=== PATIENT | male | born 1935 | race American Indian/Alaskan Native ===

== ENCOUNTER 2017-02-11 10:46 | Outpatient (CLI) | payer MEDICARE ==
--- NOTE | 2017-02-11 14:17 | Ultrasound Report ---
ULTRASOUND RENAL BILATERAL HISTORY: Chronic kidney disease, stage III. TECHNIQUE: transabdominal ultrasound with color Doppler interrogation. FINDINGS: The right kidney measures 9.2 x 4.1 x 4.6cm. Right renal cortex: 1.0cm. The left kidney measures 9.4 x 5.1 x 4.3cm. Left renal cortex: 1.3cm. Both kidneys are normal size, contour and position. There is increased renal parenchymal echotexture bilaterally consistent with nonspecific renal parenchymal disease. No evidence for mass, cystic disease or hydronephrosis. There are scattered echogenic foci in both kidneys consistent with tiny calyceal stones. This was also seen on CT abdomen pelvis dated 07/08/14. Images through the bladder are unremarkable. IMPRESSION: Echogenic kidneys consistent with nonspecific renal parenchymal disease. Bilateral calyceal stones are suspected but no evidence for hydronephrosis.
== END 2017-02-11 10:47 | disposition home or self-care (01) ==
LOC: US 10:46
PROVIDERS: ATTEND Internal Medicine Nephrology
DX: I12.9 Hypertensive chronic kidney disease with stage 1 through stage 4 chronic kidney disease, or unspecified chronic kidney disease (principal); N18.3 Chronic kidney disease, stage 3 (moderate)
CPT/HCPCS: 76770

== ENCOUNTER 2017-10-15 03:20 | Observation (INO) | payer MEDICARE ==
[2017-10-15] MEDS ORDERED: ASPIRIN PO ONE (04:18)
[2017-10-15] MEDS ORDERED: ZOFRAN IV ONE (04:28)
--- NOTE | 2017-10-15 04:51 | XRay Report ---
FINAL REPORT EXAM: XR CHEST 1V AP HISTORY: Chest pain. TECHNIQUE: A single frontal portable radiograph of the chest was obtained. No prior studies are available for comparison. FINDINGS: The heart is mildly enlarged. There is a left subclavian pacemaker. There is mild diffuse prominence of the interstitial markings, with mild bilateral patchy perihilar opacities. Taken together, this is most suggestive mild pulmonary edema, though pneumonia is not excluded. There is no pleural effusion or pneumothorax. No significant osseous abnormalities are identified. There is gaseous distention of the stomach. IMPRESSION: Cardiomegaly. Mild diffuse prominence of the interstitial markings, with mild bilateral patchy perihilar opacities. These findings may indicate mild pulmonary edema, though pneumonia is not excluded. Clinical correlation is recommended.
[2017-10-15 05:04] LABS: Basophils % (Auto) 0.5 % (0.0-1.8); Eosinophils # (Auto) 0.2 K/mm3 (0.0-0.4); Eosinophils % (Auto) 3.3 % (0.0-4.3); Hematocrit 36.2 % (35.5-45.6); Hemoglobin 12.1 gm/dl (11.8-15.2); Lymphocytes # (Auto) 1.2 K/mm3 (1.2-5.4); Lymphocytes % (Auto) 17.1 % (13.4-35.0); Mean Corpuscular HGB Conc 33 % (32-34); Mean Corpuscular Hemoglobin 29 pg (28-32); Mean Corpuscular Volume 87 fl (84-94); Monocytes # (Auto) 0.6 K/mm3 (0.0-0.8); Monocytes % (Auto) 8.1 % (0.0-7.3); Platelet Count 143 K/mm3 (140-440); Red Blood Count 4.17 M/mm3 (3.65-5.03); Red Cell Distribution Width 14.8 % (13.2-15.2)
[2017-10-15 05:16] LABS: Creatine Kinase MB 3.8 ng/mL (0.0-4.0)
[2017-10-15 05:17] LABS: BUN/Creatinine Ratio 10; Blood Urea Nitrogen 13 mg/dL (9-20); Calcium 9.2 mg/dL (8.4-10.2); Hemolysis Index 14
--- NOTE | 2017-10-15 06:26 | Emergency Department Report ---
<ADDIE KING - Last Filed: 10/15/17 09:30> ED Chest Pain HPI - General Chief Complaint: Chest Pain Stated Complaint: CHEST PAIN Time Seen by Provider: 10/15/17 06:25 - Related Data Home Medications Medication Instructions Recorded Confirmed Last Taken Amlodipine Besylate [Norvasc] 10 mg PO DAILY 06/15/13 06/15/13 06/15/13 Aspirin [Baby Aspirin] 81 mg PO ONCE 06/15/13 06/15/13 06/15/13 Lisinopril [Zestril] 40 mg PO QDAY 06/15/13 06/15/13 06/15/13 Metformin HCl [Fortamet ER] 1,000 mg PO BID 06/15/13 06/15/13 06/15/13 Mv-Mn/Iron/Folic Acid/Herb 190 1 tab PO QDAY 06/15/13 06/15/13 06/15/13 [Vitamin D3 Complete Caplet] [place]-3/Dha/Epa/Fish Oil [Fish Oil 1,000 mg PO DAILY 06/15/13 06/15/13 06/15/13 Dr 500 mg Softgel] Oxybutynin Chloride [Ditropan Xl] 20 mg PO DAILY 06/15/13 06/15/13 06/15/13 Simvastatin [Zocor] 20 mg PO QDAY 06/15/13 06/15/13 06/14/13 glipiZIDE [Glipizide Xl] 20 mg PO BID 06/15/13 06/15/13 06/15/13 Allergies Allergy/AdvReac Type Severity Reaction Status Date / Time tetracycline [Tetracycline] Allergy Rash Verified 06/15/13 19:54 con Allergy Rash Uncoded 06/15/13 19:54 ED Review of Systems ROS: Stated complaint: CHEST PAIN Other details as noted in HPI ED Past Medical Hx - Medications Home Medications: Home Medications Medication Instructions Recorded Confirmed Last Taken Type Amlodipine Besylate [Norvasc] 10 mg PO DAILY 06/15/13 06/15/13 06/15/13 History Aspirin [Baby Aspirin] 81 mg PO ONCE 06/15/13 06/15/13 06/15/13 History Lisinopril [Zestril] 40 mg PO QDAY 06/15/13 06/15/13 06/15/13 History Metformin HCl [Fortamet ER] 1,000 mg PO BID 06/15/13 06/15/13 06/15/13 History Mv-Mn/Iron/Folic Acid/Herb 190 1 tab PO QDAY 06/15/13 06/15/13 06/15/13 History [Vitamin D3 Complete Caplet] [place]-3/Dha/Epa/Fish Oil [Fish Oil 1,000 mg PO DAILY 06/15/13 06/15/13 06/15/[address] 500 mg Softgel] Oxybutynin Chloride [Ditropan Xl] 20 mg PO DAILY 06/15/13 06/15/13 06/15/13 History Simvastatin [Zocor] 20 mg PO QDAY 06/15/13 06/15/13 06/14/13 History glipiZIDE [Glipizide Xl] 20 mg PO BID 06/15/13 06/15/13 06/15/13 History ED Course Vital Signs 10/15/17 10/15/17 10/15/17 03:36 03:45 03:53 Temperature 98.2 F Pulse Rate 73 61 66 Respiratory 17 17 18 Rate Blood Pressure 155/95 155/95 Blood Pressure 155/95 [Right] O2 Sat by Pulse 100 100 100 Oximetry 10/15/17 10/15/17 10/15/17 04:01 04:15 04:31 Temperature Pulse Rate 61 62 65 Respiratory 20 19 16 Rate Blood Pressure 170/96 170/96 170/96 Blood Pressure [Right] O2 Sat by Pulse 100 100 100 Oximetry 10/15/17 10/15/17 10/15/17 04:45 05:00 05:49 Temperature Pulse Rate 65 60 Respiratory 12 23 Rate Blood Pressure 170/96 189/102 189/102 Blood Pressure [Right] O2 Sat by Pulse 97 100 100 Oximetry 10/15/17 10/15/17 10/15/17 06:00 06:16 06:30 Temperature Pulse Rate 64 60 Respiratory 18 13 Rate Blood Pressure 189/102 173/83 173/83 Blood Pressure [Right] O2 Sat by Pulse 99 100 100 Oximetry 10/15/17 10/15/17 10/15/17 06:46 07:00 07:17 Temperature Pulse Rate 58 L 60 Respiratory 11 L 9 L Rate Blood Pressure 173/83 176/83 136/103 Blood Pressure [Right] O2 Sat by Pulse 99 99 Oximetry 10/15/17 10/15/17 10/15/17 07:25 07:38 07:46 Temperature 98.5 F Pulse Rate 62 61 Respiratory 14 27 H Rate Blood Pressure 163/94 163/94 Blood Pressure 163/94 [Right] O2 Sat by Pulse 100 99 Oximetry 10/15/17 10/15/17 10/15/17 08:00 08:16 08:30 Temperature Pulse Rate 60 62 60 Respiratory 15 16 14 Rate Blood Pressure 170/92 170/92 136/103 Blood Pressure [Right] O2 Sat by Pulse 100 100 100 Oximetry 10/15/17 10/15/17 10/15/17 08:46 09:00 09:16 Temperature Pulse Rate 68 62 60 Respiratory 16 15 15 Rate Blood Pressure 136/103 157/82 157/82 Blood Pressure [Right] O2 Sat by Pulse 100 100 100 Oximetry 10/15/17 10/15/17 10/15/17 09:30 09:46 10:00 Temperature Pulse Rate 60 60 60 Respiratory 15 15 14 Rate Blood Pressure 157/82 157/82 128/66 Blood Pressure [Right] O2 Sat by Pulse 100 100 100 Oximetry 10/15/17 10/15/17 10/15/17 10:16 10:30 10:46 Temperature Pulse Rate 60 64 60 Respiratory 16 15 16 Rate Blood Pressure 128/66 128/66 128/66 Blood Pressure [Right] O2 Sat by Pulse 100 100 100 Oximetry 10/15/17 10/15/17 10/15/17 11:00 11:16 11:30 Temperature Pulse Rate 60 Respiratory 15 Rate Blood Pressure 123/65 123/65 123/65 Blood Pressure [Right] O2 Sat by Pulse 100 99 99 Oximetry 10/15/17 11:46 Temperature Pulse Rate Respiratory Rate Blood Pressure 123/65 Blood Pressure [Right] O2 Sat by Pulse 100 Oximetry ED Medical Decision Making - Lab Data Result diagrams: 10/15/17 04:47 10/15/17 04:47 Critical care attestation.: If time is entered above; I have spent that time in minutes in the direct care of this critically ill patient, excluding procedure time. ED Disposition Clinical Impression: Chest pain Qualifiers: Chest pain type: unspecified Qualified Code(s): R07.9 - Chest pain, unspecified CHF (congestive heart failure) Qualifiers: Heart failure type: unspecified Heart failure chronicity: acute on chronic Qualified Code(s): I50.9 - Heart failure, unspecified Disposition: DC-09 OP ADMIT IP TO THIS HOSP Condition: Stable <DANAY BHATT - Last Filed: 10/15/17 12:14> ED Chest Pain HPI - General Source: patient, family, EMS Mode of arrival: Stretcher Limitations: Other - History of Present Illness Initial Comments: 81-year-old man is a very poor historian and apparently is suffering from moderately severe dementia. The history is somewhat confused. As far as I can ascertain the patient and his were told by paramedics that his pacemaker was functioning properly rather than a defibrillator going off. The patient does not report being shocked. He did experience some sort of chest discomfort during the evening intermittently associated with shortness of breath he is not complaining chest pain or shortness of breath at time of my count. I think he may have a pacemaker rather than a defibrillator. Patient has chronic leg edema. He does not refer any leg pain. He's had no recent travel. I did not find any previous cardiology consultation in our records here. 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 MD Complaint: chest pain -: Gradual, hour(s) Onset: during rest Pain Location: substernal Pain Radiation: none Severity: moderate Severity scale (0 -10): 5 Quality: other (could not describe) Consistency: intermittent, now resolved Improves With: nothing Worsens With: nothing re: dyspnea. denies: nausea, vomting, diaphoresis, sense of impending doom Other Symptoms: denies: cough, fever, syncope Treatments Prior to Arrival: aspirin Heart Score - HEART Score History: Moderately suspicious EKG: Non-specific (paced rhythm) Age: > 65 Risk factors: > 3 risk factors or hx of atherosclerotic disease Troponin: < normal limit HEART Score: 6 - Critical Actions Critical Actions: 4-6 pts:12-16.6% risk of adverse cardiac event. Should be admitted ED Review of Systems Constitutional: denies: chills, fever Eyes: denies: eye pain, eye discharge, vision change ENT: denies: ear pain, throat pain Respiratory: shortness of breath. denies: cough, wheezing Cardiovascular: chest pain. denies: palpitations Endocrine: no symptoms reported Gastrointestinal: denies: abdominal pain, nausea, diarrhea Genitourinary: denies: urgency, dysuria Musculoskeletal: denies: back pain, joint swelling, arthralgia Skin: denies: rash, lesions Neurological: denies: headache, weakness, paresthesias Psychiatric: denies: anxiety, depression Hematological/Lymphatic: denies: easy bleeding, easy bruising ED Past Medical Hx - Past Medical History Hx Hypertension: Yes Hx Diabetes: Yes Hx Arthritis: Yes Additional medical history: History of bradyarrhythmia, being considered for pacemaker. High cholesterol - Surgical History Hx Coronary Stent: Yes (1993) Additional Surgical History: Lump from groin area - Social History Smoking Status: Never Smoker Substance Use Type: None ED Physical Exam - General Limitations: Other General appearance: alert, in no apparent distress - Head Head exam: Present: atraumatic, normocephalic - Eye Eye exam: Present: normal appearance, PERRL, EOMI. Absent: scleral icterus - ENT ENT exam: Present: mucous membranes moist - Neck Neck exam: Present: normal inspection - Respiratory Respiratory exam: Present: normal lung sounds bilaterally. Absent: respiratory distress - Cardiovascular Cardiovascular Exam: Present: regular rate, normal rhythm. Absent: systolic murmur, diastolic murmur, rubs, gallop - GI/Abdominal GI/Abdominal exam: Present: soft, normal bowel sounds. Absent: distended, tenderness, guarding, rebound, rigid - Rectal Rectal exam: Present: deferred - Extremities Exam Extremities exam: Present: normal inspection, normal capillary refill, other ( bilateral leg edema). Absent: tenderness, calf tenderness - Back Exam Back exam: Present: normal inspection - Neurological Exam Neurological exam: Present: alert, CN II-XII intact. Absent: motor sensory deficit - Psychiatric Psychiatric exam: Present: normal affect, normal mood - Skin Skin exam: Present: warm, dry, intact, normal color. Absent: rash ED Course - Reevaluation(s) Reevaluation #1: Patient was found to have findings consistent with CHF. He was given 20 of Lasix and a small amount of supplemental potassium. His glucose was 250 his troponin was normal with white count of 6.9. He was admitted for further evaluation of his chest pain and congestive heart failure. 10/15/17 12:11 ANNE score - Anne Score Age > 65: (1) Yes Aspirin use within the Past 7 Days: (1) Yes 3 or more CAD Risk Factors: (1) Yes 2 or more Angina events in past 24 hrs: (1) Yes Known CAD with more than 50% Stenosis: (0) No Elevated Cardiac Markers: (0) No ST Deviation Greater than 0.5mm: (0) No ANNE Score: 4 ED Medical Decision Making - Lab Data Result diagrams: 10/15/17 04:47 10/15/17 04:47 Laboratory Results - last 24 hr 10/15/17 10/15/17 04:47 04:47 WBC 6.9 RBC 4.17 Hgb 12.1 Hct 36.2 MCV 87 MCH 29 MCHC 33 RDW 14.8 Plt Count 143 Lymph % (Auto) 17.1 [place] % (Auto) 8.1 H Eos % (Auto) 3.3 Baso % (Auto) 0.5 Lymph # 1.2 [place] # 0.6 Eos # 0.2 Baso # 0.0 Seg Neutrophils % 71.0 H Seg Neutrophils # 4.9 Sodium 131 L Potassium 3.5 L Chloride 92.1 L Carbon Dioxide 22 Anion Gap 20 BUN 13 Creatinine 1.3 Estimated GFR > 60 BUN/Creatinine Ratio 10 Glucose 250 H Calcium 9.2 Total Creatine Kinase 113 CK-MB (CK-2) 3.8 CK-MB (CK-2) Rel Index 3.3 Troponin T < 0.010 - EKG Data -: EKG Interpreted by Me - EKG Data Paced rhythm both prehospital and here complete capture. 10/15/17 12:12 - Radiology Data Radiology results: report reviewed interpreted by me: Central fullness, cardiomegaly, pacemaker, probable pleural fluid. Consistent with CHF Critical Care Time: No ED Disposition Is pt being admited?: Yes Does the pt Need Aspirin: Yes Time of Disposition: 12:14
[2017-10-15] MEDS ORDERED: LASIX IV ONE (06:28)
[2017-10-15] MEDS ORDERED: K-DUR PO ONE (06:28)
[2017-10-15 07:20] LABS: Albumin 4.1 g/dL (3.9-5); Bilirubin,Direct 0.2 mg/dL (0-0.2)
[2017-10-15 08:24] LABS: INR 1.23 (0.87-1.13)
[2017-10-15 08:25] LABS: Partial Thromboplastin Time 33.2 Sec. (24.2-36.6)
--- NOTE | 2017-10-15 08:27 | History and Physical Report ---
History of Present Illness Date of examination: 10/15/17 Date of admission: 10/15/17 Chief complaint: Chest pain since last night History of present illness: Very pleasant 81-year-old -[place] male patient with significant history of hypertension diabetes mellitus, dyslipidemia, status post permanent pacemaker, follows with [facility], presented to the emergency room with chest pain intermittent since last night. Patient grades his chest pain between 4-5/10 radiating to the left shoulder Associated with mild nausea, had normal things last night, no new episodes of vomiting No shortness of breath or diaphoresis, no aggravating or relieving factors Patient denies orthopnea paroxysmal nocturnal dyspnea Complaints complains that his medications First set of cardiac enzymes negative, EKG no acute ST-T changes Past History Past Medical History: CAD, diabetes, hypertension, hyperlipidemia Past Surgical History: PTCA, Other (lump in the groin) Social history: lives with family, full code. denies: smoking, alcohol abuse, prescription drug abuse Family history: hypertension Medications and Allergies Allergies Allergy/AdvReac Type Severity Reaction Status Date / Time tetracycline [Tetracycline] Allergy Rash Verified 06/15/13 19:54 con Allergy Rash Uncoded 06/15/13 19:54 Home Medications Medication Instructions Recorded Confirmed Last Taken Type Amlodipine Besylate [Norvasc] 10 mg PO DAILY 06/15/13 06/15/13 06/15/13 History Aspirin [Baby Aspirin] 81 mg PO ONCE 06/15/13 06/15/13 06/15/13 History Lisinopril [Zestril] 40 mg PO QDAY 06/15/13 06/15/13 06/15/13 History Metformin HCl [Fortamet ER] 1,000 mg PO BID 06/15/13 06/15/13 06/15/13 History Mv-Mn/Iron/Folic Acid/Herb 190 1 tab PO QDAY 06/15/13 06/15/13 06/15/13 History [Vitamin D3 Complete Caplet] [place]-3/Dha/Epa/Fish Oil [Fish Oil 1,000 mg PO DAILY 06/15/13 06/15/13 06/15/[address] 500 mg Softgel] Oxybutynin Chloride [Ditropan Xl] 20 mg PO DAILY 06/15/13 06/15/13 06/15/13 History Simvastatin [Zocor] 20 mg PO QDAY 06/15/13 06/15/13 06/14/13 History glipiZIDE [Glipizide Xl] 20 mg PO BID 06/15/13 06/15/13 06/15/13 History Review of Systems Constitutional: no weight loss, no weight gain, no fever, no chills Ears, nose, mouth and throat: no nasal congestion, no nasal discharge Cardiovascular: chest pain, no orthopnea, no paroxysmal nocturnal dyspnea Respiratory: no cough, no cough with sputum Gastrointestinal: nausea, vomiting, no abdominal pain Genitourinary Male: no dysuria, no flank pain Musculoskeletal: no myalgias, no arthritis Integumentary: no rash, no lesions Neurological: no paralysis, no weakness, no syncope Psychiatric: no anxiety, no depression Endocrine: no cold intolerance, no heat intolerance Hematologic/Lymphatic: no easy bruising, no easy bleeding Allergic/Immunologic: no urticaria, no allergic rhinitis Exam - Constitutional Vitals: Temp Pulse Resp BP Pulse Ox 98.5 F 62 14 163/94 100 10/15/17 07:25 10/15/17 07:25 10/15/17 07:25 10/15/17 07:25 10/15/17 07:25 General appearance: Present: no acute distress, well-nourished - EENT Eyes: Present: PERRL, EOM intact - Neck Neck: Present: supple, normal ROM - Respiratory Respiratory effort: normal Respiratory: bilateral: diminished, negative: rales, rhonchi, wheezing - Cardiovascular Rhythm: regular Heart Sounds: Present: S1 & S2 - Extremities Extremities: no ischemia, No edema - Abdominal General gastrointestinal: Present: soft, non-tender, non-distended, normal bowel sounds - Integumentary Integumentary: Present: clear, warm - Musculoskeletal Musculoskeletal: strength equal bilaterally, generalized weakness - Psychiatric Psychiatric: appropriate mood/affect, cooperative - Neurologic Neurologic: CNII-XII intact, moves all extremities Results - Labs CBC & Chem 7: 10/15/17 04:47 10/15/17 04:47 Labs: Abnormal lab results 10/15/17 10/15/17 10/15/17 Range/Units 04:47 04:47 04:47 [place] % (Auto) 8.1 H (0.0-7.3) % Seg Neutrophils % 71.0 H (40.0-70.0) % PT (12.2-14.9) Sec. INR (0.87-1.13) Sodium 131 L (137-145) mmol/L Potassium 3.5 L (3.6-5.0) mmol/L Chloride 92.1 L (98-107) mmol/L Glucose 250 H (75-100) mg/dL Magnesium 1.30 L (1.7-2.3) mg/dL /10/28 Range/Units 06:00 [place] % (Auto) (0.0-7.3) % Seg Neutrophils % (40.0-70.0) % PT 16.2 H (12.2-14.9) Sec. INR 1.23 H (0.87-1.13) Sodium (137-145) mmol/L Potassium (3.6-5.0) mmol/L Chloride (98-107) mmol/L Glucose (75-100) mg/dL Magnesium (1.7-2.3) mg/dL Assessment and Plan --Atypical chest pain; however patient has multiple risk factors Rule out acute coronary syndrome, serial cardiac enzymes, EKG, echocardiogram Cardiology evaluation, possible stress test tomorrow morning to rule out reversible ischemia Aspirin, beta blockers, bert inhibitors, nitrates, statins, Lovenox --History of coronary artery disease status post PCI : many years ago; continue current cardiac medications --Status post permanent pacemaker; functional, closely monitor --Gastroesophageal reflux disease; continue Pepcid --Type 2 diabetes mellitus; Accu-Chek sliding scale coverage and ADA diet, oral hypoglycemics Insulin as needed, check A1c --Hypertension; moderate control, continue current antihypertensives and when necessary medications --Dyslipidemia; resume lipid-lowering medicines, low-cholesterol diet --DVT prophylaxis; Lovenox --Full CODE STATUS Follow cardiology evaluation and recommendations Possible discharge in 1-2 days if stable Closely monitor the patient and adjust management as needed Plan of care discussed with the patient and the at the bedside as well as the nurse
[2017-10-15] MEDS ORDERED: BABY ASPIRIN PO SCH (09:00)
[2017-10-15] MEDS ORDERED: MAGNESIUM SULFATE 3 GM in NACL 0.9% 100 ML IV ONE (09:38)
[2017-10-15] MEDS ORDERED: DHA PO SCH (10:00)
[2017-10-15] MEDS ORDERED: NON-FORMULARY (Amlodipine Besylate [Norvasc] 10 MG) PO SCH (10:00)
[2017-10-15] MEDS ORDERED: EPA PO SCH (10:00)
[2017-10-15] MEDS ORDERED: OXYBUTYNIN CHLORIDE 20 MG PO SCH (10:00)
[2017-10-15] MEDS ORDERED: OMEGA PO SCH (10:00)
[2017-10-15] MEDS ORDERED: FISH OIL PO SCH ×2 (10:00)
[2017-10-15] MEDS ORDERED: LOVENOX SUB-Q ONE (11:27)
[2017-10-15] MEDS ORDERED: COREG ONE (11:27)
[2017-10-15] MEDS ORDERED: NORVASC ONE (11:27)
[2017-10-15] MEDS: COREG PO SCH ×2 (11:32→21:57)
[2017-10-15] MEDS: LOVENOX SUB-Q SCH (11:33)
[2017-10-15] MEDS: NORVASC PO SCH (11:33)
[2017-10-15] MEDS: GLUCOTROL XL PO SCH ×2 (14:00→21:56)
[2017-10-15] MEDS: FISH OIL PO SCH (14:02)
[2017-10-15] MEDS: DITROPAN XL PO SCH (14:03)
[2017-10-15] MEDS: ZESTRIL PO SCH (14:03)
[2017-10-15] MEDS: HumaLOG SUB-Q SCH ×3 (14:05→22:35)
[2017-10-15 14:12] LABS: Chol/HDL Ratio 2.59 %
[2017-10-15 19:13] LABS: Creatine Kinase MB 4.5 ng/mL (0.0-4.0)
[2017-10-16] MEDS: GLUCOTROL XL PO SCH ×3 (08:00→22:17)
[2017-10-16] MEDS ORDERED: LEXISCAN IV ONE ×2 (08:12→08:26)
[2017-10-16 08:43] LABS: Calcium 9.2 mg/dL (8.4-10.2)
[2017-10-16] MEDS ORDERED: K-DUR PO NR (08:49)
[2017-10-16] MEDS: HumaLOG SUB-Q SCH ×4 (09:27→22:11)
[2017-10-16] MEDS: DITROPAN XL PO SCH (11:33)
[2017-10-16] MEDS: FISH OIL PO SCH (11:33)
[2017-10-16] MEDS: ZESTRIL PO SCH (11:33)
[2017-10-16] MEDS: LOVENOX SUB-Q SCH (11:34)
[2017-10-16] MEDS: NORVASC PO SCH (11:34)
[2017-10-16] MEDS: COREG PO SCH ×2 (11:34→22:03)
[2017-10-16] MEDS: NACL 0.9% 1000 ML 1,000 ML IV SCH ×2 (11:58→22:11)
--- NOTE | 2017-10-16 14:06 | Progress Note ---
Assessment and Plan Assessment and plan: --Atypical chest pain; Stress test today, , Continue current cardiac medications supportive care --History of coronary artery disease status post PCI : many years ago; continue current cardiac medications --Status post permanent pacemaker; functional, closely monitor --Gastroesophageal reflux disease; continue Pepcid --Type 2 diabetes mellitus; Accu-Chek sliding scale coverage and ADA diet, oral hypoglycemics Insulin as needed, check A1c --Hypertension; moderate control, continue current antihypertensives and when necessary medications --Dyslipidemia; resume lipid-lowering medicines, low-cholesterol diet --DVT prophylaxis; Lovenox --Full CODE STATUS Follow cardiology evaluation and recommendations Possible discharge in 1-2 days if stable Follow status report if negative and patient is stable and be discharged home History Interval history: Patient seen and examined medical records reviewed Admitted with atypical chest pain scheduled for stress test in view of multiple risk factors Patient feels slightly better no new complaints of chest pain Vital signs stable Alert awake oriented 3 not in acute distress Hospitalist Physical - Constitutional Vitals: Temp Pulse Resp BP Pulse Ox 97.6 F 63 20 169/93 99 10/16/17 11:39 10/16/17 11:39 10/16/17 11:39 10/16/17 11:39 10/16/17 11:39 General appearance: Present: no acute distress, well-nourished - EENT Eyes: Present: PERRL, EOM intact - Neck Neck: Present: supple, normal ROM - Respiratory Respiratory effort: normal Respiratory: bilateral: diminished, negative: rales, rhonchi, wheezing - Cardiovascular Rhythm: regular Heart Sounds: Present: S1 & S2 - Extremities Extremities: no ischemia, No edema - Abdominal General gastrointestinal: soft, non-tender, non-distended, normal bowel sounds - Integumentary Integumentary: Present: clear, warm - Psychiatric Psychiatric: appropriate mood/affect, cooperative - Neurologic Neurologic: CNII-XII intact, moves all extremities Results - Labs CBC & Chem 7: 10/15/17 04:47 10/16/17 07:59 Labs: Laboratory Last Values WBC 6.9 K/mm3 (4.5-11.0) 10/15/17 04:47 RBC 4.17 M/mm3 (3.65-5.03) 10/15/17 04:47 Hgb 12.1 gm/dl (11.8-15.2) 10/15/17 04:47 Hct 36.2 % (35.5-45.6) 10/15/17 04:47 MCV 87 fl (84-94) 10/15/17 04:47 MCH 29 pg (28-32) 10/15/17 04:47 MCHC 33 % (32-34) 10/15/17 04:47 RDW 14.8 % (13.2-15.2) 10/15/17 04:47 Plt Count 143 K/mm3 (140-440) 10/15/17 04:47 Lymph % (Auto) 17.1 % (13.4-35.0) 10/15/17 04:47 [place] % (Auto) 8.1 % (0.0-7.3) H 10/15/17 04:47 Eos % (Auto) 3.3 % (0.0-4.3) 10/15/17 04:47 Baso % (Auto) 0.5 % (0.0-1.8) 10/15/17 04:47 Lymph # 1.2 K/mm3 (1.2-5.4) 10/15/17 04:47 [place] # 0.6 K/mm3 (0.0-0.8) 10/15/17 04:47 Eos # 0.2 K/mm3 (0.0-0.4) 10/15/17 04:47 Baso # 0.0 K/mm3 (0.0-0.1) 10/15/17 04:47 Seg Neutrophils % 71.0 % (40.0-70.0) H 10/15/17 04:47 Seg Neutrophils # 4.9 K/mm3 (1.8-7.7) 10/15/17 04:47 PT 16.2 Sec. (12.2-14.9) H 10/15/17 06:00 INR 1.23 (0.87-1.13) H 10/15/17 06:00 APTT 33.2 Sec. (24.2-36.6) 10/15/17 06:00 Sodium 137 mmol/L (137-145) 10/16/17 07:59 Potassium 3.5 mmol/L (3.6-5.0) L 10/16/17 07:59 Chloride 97.6 mmol/L (98-107) L 10/16/17 07:59 Carbon Dioxide 25 mmol/L (22-30) 10/16/17 07:59 Anion Gap 18 mmol/L 10/16/17 07:59 BUN 19 mg/dL (9-20) 10/16/17 07:59 Creatinine 1.6 mg/dL (0.8-1.5) H 10/16/17 07:59 Estimated GFR 51 ml/min 10/16/17 07:59 BUN/Creatinine Ratio 12 % 10/16/17 07:59 Glucose 90 mg/dL (75-100) 10/16/17 07:59 POC Glucose 114 (70-105) H 10/16/17 06:43 Hemoglobin A1c 8.5 % (4-6) H 10/15/17 13:26 Calcium 9.2 mg/dL (8.4-10.2) 10/16/17 07:59 Magnesium 2.00 mg/dL (1.7-2.3) 10/16/17 07:59 Total Bilirubin 1.10 mg/dL (0.1-1.2) 10/15/17 04:47 Direct Bilirubin 0.2 mg/dL (0-0.2) 10/15/17 04:47 Indirect Bilirubin 0.9 mg/dL 10/15/17 04:47 AST 13 units/L (5-40) 10/15/17 04:47 ALT 9 units/L (7-56) 10/15/17 04:47 Alkaline Phosphatase 91 units/L (35-129) 10/15/17 04:47 Total Creatine Kinase 233 units/L (55-170) H 10/15/17 17:57 CK-MB (CK-2) 4.5 ng/mL (0.0-4.0) H 10/15/17 17:57 CK-MB (CK-2) Rel Index 1.9 (0-4) 10/15/17 17:57 Troponin T 0.013 ng/mL (0.00-0.029) 10/15/17 17:57 NT-Pro-B Natriuret Pep 649.1 pg/mL (0-900) 10/15/17 04:47 Total Protein 7.4 g/dL (6.3-8.2) 10/15/17 04:47 Albumin 4.1 g/dL (3.9-5) 10/15/17 04:47 Albumin/Globulin Ratio 1.2 % 10/15/17 04:47 Triglycerides 55 mg/dL (2-149) 10/15/17 13:26 Cholesterol 158 mg/dL (50-199) 10/15/17 13:26 LDL Cholesterol Direct 99 mg/dL (50-130) 10/15/17 13:26 HDL Cholesterol 61 mg/dL (40-59) H 10/15/17 13:26 Cholesterol/HDL Ratio 2.59 % 10/15/17 13:26
--- NOTE | 2017-10-16 15:12 | Progress Note ---
Subjective Date of service: 10/16/17 Interval history: CONSULT DICTATED THALLIUM-FIXED DEFECT OK TO D\C Objective Vital Signs Temp Pulse Pulse Resp BP BP Pulse Ox 10/16/17 11:39 97.6 F 63 20 169/93 99 10/16/17 11:34 62 165/96 10/16/17 11:33 62 165/96 10/16/17 11:00 61 10/16/17 09:53 63 147/85 10/16/17 09:52 61 145/81 10/16/17 09:51 67 134/71 10/16/17 09:50 64 154/94 10/16/17 09:49 65 143/96 10/16/17 09:38 67 158/98 10/16/17 09:00 78 17 10/16/17 07:27 97.6 F 66 20 125/80 100 10/16/17 03:40 65 95/60 99 10/16/17 03:05 69 10/16/17 01:03 98.9 F 69 20 109/67 98 10/15/17 23:58 68 109/67 97 10/15/17 21:57 61 128/78 10/15/17 20:17 98.1 F 61 18 127/78 97 10/15/17 19:06 61 127/78 98 10/15/17 16:04 98.5 F 60 20 129/76 98 - Labs and Meds Cardiac Enzymes 10/15/17 Range/Units 17:57 CK-MB (CK-2) 4.5 H (0.0-4.0) ng/mL Comprehensive Metabolic Panel 10/16/17 Range/Units 07:59 Sodium 137 (137-145) mmol/L Potassium 3.5 L (3.6-5.0) mmol/L Chloride 97.6 L (98-107) mmol/L Carbon Dioxide 25 (22-30) mmol/L BUN 19 (9-20) mg/dL Creatinine 1.6 H (0.8-1.5) mg/dL Glucose 90 (75-100) mg/dL Calcium 9.2 (8.4-10.2) mg/dL
[2017-10-16] MEDS ORDERED: K-DUR PO ONE (18:00)
[2017-10-17] MEDS: HumaLOG SUB-Q SCH (08:27)
--- NOTE | 2017-10-17 09:30 | Discharge Summary ---
Providers - Providers Date of Admission: 10/15/17 10:49 Date of discharge: 10/17/17 Attending physician: ADDIE KING 10/15/17 09:27 Consult to Physician [CONS] Routine Comment: Consulting Provider: HAYDEN WEST Physician Instructions: Reason For Exam: chest pain / risk factors Primary care physician: TY ALMONTE Hospitalization Reason for admission: chest pain Condition: Stable Pertinent studies: Chest x-ray; cardiomegaly mild diffuse prominence of interstitial markings bilateral patchy. The hilar opacities and pulmonary edema Echocardiogram; left ventricular ejection fraction 35-40% Exercise stress test; no demonstrable ischemia left ventricular ejection fraction 30% Hospital course: 81-year-old -Swiss female patient with significant history of hypertension diabetes mellitus dyslipidemia status post permanent pacemaker was admitted through emergency room with chest pain of one-day duration Patient was evaluated admitted to the hospital symptomatically managed Cardiology evaluated the patient, had echocardiogram stress test which was negative for reversible ischemia, ejection fraction of 35% Patient's medications were optimized Beta blockers but not given, in view of bradycardia with heart rate ranging in 50s and 60s Patient is advanced age 81, with systolic dysfunction, and bradycardia, risk for falls, patient is not on beta blockers at home, hence beta blockers were not given at discharge Patient would follow with social security specialist per schedule Today's comfortable no new complaints Vital signs stable [id number] evaluation physical examination done by me prior to discharge is unremarkable, cleared by cardiology and Patient is hemodynamically and clinically stable for discharge Discharge diagnosis; Atypical chest pain; stress test negative Probably secondary to GERD Coronary artery disease status post PCI Permanent pacemaker Type 2 diabetes mellitus Hypertension Dyslipidemia Disposition: DC-01 TO HOME OR SELFCARE Time spent for discharge: 32 min Core Measure Documentation - Palliative Care Palliative Care/ Comfort Measures: Not Applicable - Core Measures Any of the following diagnoses?: heart failure - Heart Failure Discharge Requirements LIVAN/ARB for LVSD if EF <40%: Yes Beta kellie at discharge: No Reason for no beta kellie on DC: Bradycardia Exam - Constitutional Vitals: Temp Pulse Resp BP Pulse Ox 97.6 F 64 17 132/77 95 10/17/17 07:27 10/17/17 08:10 10/17/17 08:10 10/17/17 07:27 10/17/17 07:27 General appearance: Present: no acute distress, well-nourished - EENT Eyes: Present: PERRL, EOM intact - Neck Neck: Present: supple, normal ROM - Respiratory Respiratory effort: normal Respiratory: negative: rales, rhonchi, wheezing - Cardiovascular Rhythm: regular Heart Sounds: Present: S1 & S2 - Extremities Extremities: no ischemia, No edema Peripheral Pulses: within normal limits - Abdominal General gastrointestinal: Present: soft, non-tender, non-distended, normal bowel sounds - Integumentary Integumentary: Present: clear, warm - Musculoskeletal Musculoskeletal: strength equal bilaterally - Psychiatric Psychiatric: appropriate mood/affect, cooperative - Neurologic Neurologic: CNII-XII intact, moves all extremities Plan Activity: advance as tolerated, fall precautions Diet: low salt, diabetic Additional Instructions: Strongly advised to comply with medications diet and follow-up visits. If you have recurrent chest pain or shortness of breath, contact M.D. or go to emergency room. Beta blockers are not advised as patient had bradycardia with heart rate in 50s Follow up with: TY ALMONTE MD [Primary Care Provider] - 3-5 Days YURIY VÁSQUEZ MD [Staff Physician] - 7 Days
[2017-10-17] MEDS: ZESTRIL PO SCH (10:06)
[2017-10-17] MEDS: GLUCOTROL XL PO SCH (10:06)
[2017-10-17] MEDS: DITROPAN XL PO SCH (10:06)
[2017-10-17] MEDS: NORVASC PO SCH (10:06)
[2017-10-17] MEDS: COREG PO SCH (10:07)
[2017-10-17] MEDS: LOVENOX SUB-Q SCH (10:07)
[2017-10-17] MEDS: FISH OIL PO SCH (10:07)
--- NOTE | 2017-10-17 11:03 | Progress Note ---
Assessment and Plan Chest pain no reversible ischemia on MPI this admission EF 35-40% on echocardiogram this admission 2013 [facility]: no significant CAD Hx of heart block s/p pacemaker Subjective Date of service: 10/17/17 Interval history: Patient reports he is feeling better. He denies chest pain and shortness of breath. Objective Vital Signs Temp Pulse Pulse Resp BP BP Pulse Ox 10/17/17 10:07 58 L 10/17/17 10:06 58 L 132/77 10/17/17 08:10 64 17 10/17/17 07:27 97.6 F 58 L 20 132/77 95 10/17/17 04:56 97.9 F 61 131/80 95 10/17/17 00:55 64 10/16/17 23:38 98.0 F 64 111/66 97 10/16/17 22:03 58 L 133/73 10/16/17 20:09 97.1 F L 58 L 20 133/73 99 10/16/17 15:43 98.4 F 60 20 117/70 95 10/16/17 11:39 97.6 F 63 20 169/93 99 10/16/17 11:34 62 165/96 10/16/17 11:33 62 165/96 10/16/17 11:00 61 - Physical Examination General: No Apparent Distress HEENT: Positive: PERRL Cardiac: Positive: Other (paced) Lungs: Positive: Decreased Breath Sounds Neuro: Positive: Grossly Intact Extremities: Absent: edema
--- NOTE | 2017-10-17 11:30 | Consultation ---
HISTORY OF PRESENT ILLNESS: The patient is a 81-year-old male with a history of coronary artery disease, hypertension, diabetes, and hyperlipidemia. He also has a permanent pacemaker. He is known to Dr. Gerald Cid of [facility]. He states that he is moderately active and has occasional dyspnea on exertion without chest pain. He has occasional ankle swelling, but no history of congestive heart failure. He presented with prolonged substernal chest tightness that lasted for hours and was associated with some shortness of breath and nausea. There was no tender pleuritic component. He has history of coronary artery disease and stent placement 2 years ago. There have been no arrhythmias, palpitations, dizziness, insomnia, claudication, or heart failure. He tries to eat healthy. He has diabetes and hyperlipidemia in the chart, also describes dementia. He had a pacemaker placed in the past for bradycardia. PAST MEDICAL HISTORY: Operations: PCI, lump in the groin, permanent pacemaker. SOCIAL HISTORY: Smoking: None. Alcohol: No heavy use. FAMILY HISTORY: Hypertension. ALLERGIES: TETRACYCLINE. MEDICATIONS: See the nurse's list. REVIEW OF SYSTEMS: There are no other complaints or medical problems. PHYSICAL EXAMINATION: GENERAL: Well-developed, well-nourished, in no acute distress. Alert, oriented, cooperative, mental status is normal. EYES, EATS, NOSE, AND THROAT: Unremarkable. NECK: Reveals no JVD or bruits. Neck is supple, no masses. LUNGS: Clear, nonlabored respirations. HEART: Regular rhythm, S4 gallop. Grade 1 systolic murmur. ABDOMEN: Soft, nontender. No masses. EXTREMITIES: No cyanosis, clubbing, edema. Peripheral pulses are intact. NEUROLOGICAL: Symmetrical. SKIN: Clear. LABORATORY DATA: EKG, sinus rhythm with ventricular pacing. IMPRESSION: 1. Prolonged chest pain in a patient with known history of coronary artery disease. The troponin is normal. There are no acute electrocardiographic changes. Stress thallium shows a fixed inferolateral defect, relatively small with an ejection fraction of about 30%. I suspect this chest pain is noncardiac, possibly reflux. I feel he can be treated medically and discharged to be seen in the office in a few days. 2. Possible underlying ischemic cardiomyopathy with ejection fraction of 30%. 3. Hypertension. 4. Labile in hospital. 5. History of dementia, mild. 6. Hyperlipidemia. 7. Diabetes. 8. History of edema, negative exam today. 9. Permanent pacemaker for probable sick sinus syndrome. 10. Abnormal chest x-ray, no signs of congestive heart failure. Consider underlying lung disease. This can be evaluated on an outpatient basis. Thank you for this consultation. JOB# [id number] DINESH/NTS
[2017-10-17 11:54] VITALS: BP 134/78
--- NOTE | 2017-10-17 13:49 | Treadmill Report ---
THALLIUM STRESS TEST LEFT VENTRICLE: Left ventricular chamber size is within normal spread. Perfusion study demonstrates a small apical defect consistent with normal apical thinning. Otherwise, no significant defects identified. Gated analysis suggests left ventricular dysfunction with ejection fraction calculated at 30%. CONCLUSION: There is no demonstrable ischemia on thallium perfusion imaging. Recommend clinical correlation and echocardiographic reassessment of left ventricular chamber size and systolic function. [facility]# [id number] CA/NTS
--- NOTE | 2017-10-17 15:40 | Query- Chest Pain ---
Faustino Chavarria____Huan Date:____10/17/17 [employer] Transplanter/CDS:____Jacklynit Phone#:____[phone] Exercise your independent professional judgment when responding to query. Questions asked do not imply a particular answer is desired or expected. We greatly appreciate your clarification on this issue. Clinical Documentation States: 81 year old male was admitted on 10/15/17 The H&P states " --Atypical chest pain; however patient has multiple risk factors Rule out acute coronary syndrome, serial cardiac enzymes, EKG, echocardiogram Cardiology evaluation, possible stress test tomorrow morning to rule out reversible ischemia " The cardiology progress note (White 10/17/17) states " Assessment and Plan Chest pain no reversible ischemia on MPI this admission EF 35-40% on echocardiogram this admission 2013 [facility]: no significant CAD Hx of heart block s/p pacemaker " Please document the etiology of Chest Pain: [ ] Myocardial Infarction [ ] Pneumonia [ ] Mediastinitis [ ] Costochondritis [ ] Pulmonary Embolism [ ] Coronary Artery Disease [x ] GERD [ ] Other: [ ] Comment/Explanation: Present on Admission: [ x] Yes (Y) [ ] Clinically undeterminable (W) [ ] No(N) Please document response in your Progress Notes and/or Discharge Summary and indicate if the condition was present on admission. VERO
[2017-10-18] MEDS ORDERED: BABY ASPIRIN PO SCH (10:00)
== END 2017-10-17 13:15 | disposition home or self-care (01) ==
LOC: ED 03:20 → INTOOBSV 10:49 → 4A 10:49
PROVIDERS: ADMIT Internal Medicine; ATTEND Internal Medicine
DX: R07.89 Other chest pain (principal); K21.9 Gastro-esophageal reflux disease without esophagitis; I25.10 Atherosclerotic heart disease of native coronary artery without angina pectoris; F03.90 Unspecified dementia, unspecified severity, without behavioral disturbance, psychotic disturbance, mood disturbance, and anxiety; M19.90 Unspecified osteoarthritis, unspecified site; I10 Essential (primary) hypertension; E78.5 Hyperlipidemia, unspecified; E11.9 Type 2 diabetes mellitus without complications; Z79.899 Other long term (current) drug therapy; Z79.82 Long term (current) use of aspirin; Z95.5 Presence of coronary angioplasty implant and graft; Z95.0 Presence of cardiac pacemaker; Z79.01 Long term (current) use of anticoagulants; Z82.49 Family history of ischemic heart disease and other diseases of the circulatory system
CPT/HCPCS: 36415; 71045; 78452; 80048; 80061; 80074; 82550; 82553; 82962; 83036; 83735; 83880; 84132; 84484; 85025; 85610; 85730; 93005; 93010; 93017; 93306; 96361; 96365; 96366; 96372; 96375; 99285; A9270; A9502; G0378; J1650; J1940; J2405; J2785; J3475; J7030; J1815